=== PATIENT | male | born 1965 | race African-American/Black ===

== ENCOUNTER 2025-04-12 16:02 | Inpatient (IN) | payer OTHER ==
[2025-04-12 16:38] VITALS: BMI 20.5
[2025-04-12 18:31] LABS: MCHC 31.5 g/dl (32.3-36.5); MEAN CELL VOLUME 93.8 fl (79.0-92.2); MEAN PLT VOLUME 9.9 fl (9.4-12.4); RDW 12.3 % (12.2-16.1)
[2025-04-12] MEDS: SODIUM CHLORIDE 0.9% 500 ML INFUS.BAG IV ONE (18:45)
[2025-04-12 18:52] LABS: GLUCOSE,RANDOM 73.0 mg/dL (74-106)
[2025-04-12 18:53] LABS: TOT PROT 6.5 g/dl (6.4-8.2)
[2025-04-12 18:54] LABS: CO2 25.0 mmol/L (21-32)
[2025-04-12 18:55] LABS: ALK PHOS 62.0 U/L (40-150)
[2025-04-12 18:58] LABS: CREATININE 0.82 mg/dL (0.55-1.3); SGOT/AST 21.0 U/L (5-34); SGPT/ALT 12.0 U/L (0-55)
[2025-04-12 19:19] LABS: HIV INTERPRETATION NEGATIVE (NEGATIVE)
[2025-04-12 19:32] LABS: HCV DIAGNOSTIC IN-HOUSE W/RFLX REACTIVE (NONREACTIVE)
[2025-04-12] MEDS: SODIUM CHLORIDE 1,000 ML IV STA (22:48)
[2025-04-12 23:59] LABS: URINE APPEARANCE CLEAR; URINE BILIRUBIN NEGATIVE (NEGATIVE); URINE COLOR YELLOW; URINE GLUCOSE (UA) NEGATIVE (NEGATIVE); URINE KETONE NEGATIVE (NEGATIVE); URINE LEUK ESTERASE NEGATIVE (NEGATIVE); URINE NITRITE NEGATIVE (NEGATIVE); URINE PROTEIN NEGATIVE (NEGATIVE); URINE UROBILINOGEN 0.2 mg/dL (0.2-1.0)
[2025-04-13 00:08] LABS: COCAINE, UR POSITIVE (NEGATIVE)
[2025-04-13 00:09] LABS: OPIATES, URI NEGATIVE (NEGATIVE); PHENCYCLIDINE,URINE NEGATIVE (NEGATIVE); URINE AMPHETAMINES NEGATIVE (NEGATIVE); URINE BARBITURATES NEGATIVE (NEGATIVE); URINE BENZODIAZEPINES POSITIVE (NEGATIVE)
[2025-04-13 00:10] LABS: METHADONE, UR POSITIVE (NEGATIVE)
[2025-04-13 07:35] LABS: ABSOLUTE IMMATURE GRANULOCYTES 0.01 x10^3/uL (0.0-0.031); BASOPHILS # 0.01 x10^3/uL (0.01-0.08); EOSINOPHIL % 2.1 % (0.8-7.0); EOSINOPHILS # 0.08 x10^3/uL (0.04-0.54); MCHC 32.4 g/dl (32.3-36.5); MEAN CELL VOLUME 92.2 fl (79.0-92.2); MEAN PLT VOLUME 9.5 fl (9.4-12.4); MONOCYTE # 0.42 x10^3/uL (0.30-0.82); MONOCYTE % 11.2 % (5.3-12.2); RDW 12.0 % (12.2-16.1)
[2025-04-13 07:58] LABS: GLUCOSE,RANDOM 76.0 mg/dL (74-106); TOT PROT 5.6 g/dl (6.4-8.2)
[2025-04-13 07:59] LABS: CO2 26.0 mmol/L (21-32)
[2025-04-13 08:01] LABS: ALK PHOS 59.0 U/L (40-150)
[2025-04-13 08:03] LABS: SGPT/ALT 9.0 U/L (0-55)
[2025-04-13 08:04] LABS: CREATININE 0.82 mg/dL (0.55-1.3); SGOT/AST 16.0 U/L (5-34)
[2025-04-13] MEDS ORDERED: ALBUTEROL SO4 0.083% IH SOL 2.5 MG/3 ML VIAL.NEB. NEB ONE (09:12)
[2025-04-13] MEDS: ENOXAPARIN NA (PORCINE) 40 MG/0.4 ML DISP.SYRIN SQ SCH (09:43)
[2025-04-13] MEDS: methylPREDNISolone NA SUCC 40 MG/1 ML VIAL IVPUSH SCH (09:44)
[2025-04-13] MEDS: AZITHROMYCIN IVPB 500 MG/250 ML BAG IVPB SCH (09:45)
[2025-04-13] MEDS: FAMOTIDINE 20 MG/50 ML IVPB 20 MG/50 ML MG IVPB SCH (09:46)
[2025-04-13] MEDS: amLODIPine BESYLATE 5 MG TABLET (FP) PO SCH (09:46)
[2025-04-13] MEDS: THIAMINE HCL 200 MG/2 ML VIAL IVPB SCH (09:46)
[2025-04-13] MEDS: ALBUTEROL SO4 0.083% IH SOL 2.5 MG/3 ML VIAL.NEB. NEB SCH (11:00)
[2025-04-13] MEDS ORDERED: guaiFENesin/D-METHORPHAN TAB.ER.12H PO PRN (11:45)
[2025-04-13] MEDS: NICOTINE 21 MG/24 HOURS TOPICAL PATCH TD SCH (12:35)
[2025-04-13] MEDS: MULTIVITAMINS (DAILY MVI) TABLET (FP) PO SCH (12:35)
[2025-04-13] MEDS: POTASSIUM CHLORIDE TABS 20 MEQ TABLET.ER (FP) PO ONE (12:40)
[2025-04-13] MEDS: MELATONIN 5 MG TABLETS PO PRN (21:41)
[2025-04-14] MEDS: MAGNESIUM 1GM/D5W - 1 GM/100 ML IVPB IVPB ONE (08:34)
[2025-04-14] MEDS: predniSONE 20 MG TABLET (UD) PO SCH (09:38)
[2025-04-14 09:42] LABS: ABSOLUTE IMMATURE GRANULOCYTES 0.03 x10^3/uL (0.0-0.031); BASOPHILS # 0.01 x10^3/uL (0.01-0.08); EOSINOPHIL % 0.9 % (0.8-7.0); EOSINOPHILS # 0.06 x10^3/uL (0.04-0.54); MCHC 33.6 g/dl (32.3-36.5); MEAN CELL VOLUME 89.8 fl (79.0-92.2); MEAN PLT VOLUME 10.3 fl (9.4-12.4); MONOCYTE # 0.60 x10^3/uL (0.30-0.82); MONOCYTE % 9.0 % (5.3-12.2); RDW 11.8 % (12.2-16.1)
[2025-04-14 09:57] LABS: GLUCOSE,RANDOM 84.0 mg/dL (74-106); TOT PROT 6.9 g/dl (6.4-8.2)
[2025-04-14 09:58] LABS: CO2 30.0 mmol/L (21-32)
[2025-04-14 10:00] LABS: ALK PHOS 62.0 U/L (40-150)
[2025-04-14 10:03] LABS: CREATININE 0.79 mg/dL (0.55-1.3); SGOT/AST 20.0 U/L (5-34); SGPT/ALT 12.0 U/L (0-55)
[2025-04-15 07:33] LABS: ABSOLUTE IMMATURE GRANULOCYTES 0.03 x10^3/uL (0.0-0.031); BASOPHILS # 0.02 x10^3/uL (0.01-0.08); EOSINOPHIL % 0.3 % (0.8-7.0); EOSINOPHILS # 0.03 x10^3/uL (0.04-0.54); MCHC 33.4 g/dl (32.3-36.5); MEAN CELL VOLUME 90.0 fl (79.0-92.2); MEAN PLT VOLUME 9.9 fl (9.4-12.4); MONOCYTE # 0.85 x10^3/uL (0.30-0.82); MONOCYTE % 9.1 % (5.3-12.2); RDW 11.9 % (12.2-16.1)
[2025-04-15 08:14] LABS: GLUCOSE,RANDOM 72.0 mg/dL (74-106); TOT PROT 7.1 g/dl (6.4-8.2)
[2025-04-15 08:15] LABS: CO2 31.0 mmol/L (21-32)
[2025-04-15 08:20] LABS: CREATININE 0.84 mg/dL (0.55-1.3); SGOT/AST 18.0 U/L (5-34); SGPT/ALT 13.0 U/L (0-55)
[2025-04-15 09:28] LABS: ALK PHOS 67.0 U/L (40-150)
[2025-04-15 14:13] VITALS: BP 131/89; PULSE 79; RESP 20; TEMP 97.9
== END 2025-04-15 17:27 | disposition home or self-care (01) | DRG 773 ==
LOC: JER 16:02 → JERBED 21:08 → J7W 22:28
PROVIDERS: ADMIT Student in an Organized Health Care Education/Training Program; ATTEND Nurse Practitioner
DX: F11.23 Opioid dependence with withdrawal (principal); J18.9 Pneumonia, unspecified organism; F10.10 Alcohol abuse, uncomplicated; K56.7 Ileus, unspecified; R15.9 Full incontinence of feces; F17.210 Nicotine dependence, cigarettes, uncomplicated; I10 Essential (primary) hypertension; R06.2 Wheezing; R10.9 Unspecified abdominal pain; R11.0 Nausea; R11.10 Vomiting, unspecified; R19.7 Diarrhea, unspecified; R32 Unspecified urinary incontinence; R41.82 Altered mental status, unspecified
CPT/HCPCS: 36415; 70450-TC; 71045-TC-FY; 74176-TC; 80053; 80307; 81003; 82607; 83690; 83735; 84100; 85025; 85027; 86803; 87389; 87522; 93005; 93010; 94640; 97116-GP; 97161-GP; 99285-25